=== PATIENT | male | born 1985 | race Caucasian/White ===

== ENCOUNTER 2022-08-23 13:09 | Emergency (ER) | payer BC, SELFPAY ==
--- NOTE | 2022-08-23 13:36 | DI.RAD.S_ITS ---
PROCEDURE: XR ELBOW RT MIN 3V INDICATIONS: Rt elbow injury TECHNIQUE: 3 views of the elbow were acquired. COMPARISON: None. FINDINGS: Bones: No fractures or dislocations. No suspicious bony lesions. Enthesophyte formation in proximal olecranon near triceps tendon insertion is seen. Soft tissues: No elbow joint effusion. No suspicious soft tissue calcifications. IMPRESSION: No acute elbow fracture or dislocation. No joint effusion. Dictated by: John Simon M.D. on 08/23/2022 at 14:20 Approved by: John Simon M.D. on 08/23/2022 at 14:20
--- NOTE | 2022-08-23 13:57 | ED_ITS ---
HPI - Extremity Injury (Upper) <YENNY Navarro - Last Filed: 08/23/22 15:20> General Chief Complaint: Extremity Injury, Upper Stated Complaint: Rt elbow inj Time Seen by Provider: 08/23/22 13:36 History of Present Illness HPI narrative: This is a 37-year-old male who presents to the emergency department with right elbow pain after he was trying to start a change, states it took 30-40 pulse and he experience pain at the tip of his right elbow and states that since the injury he is had worsening pain. He states it is sore when he tries to fully extend in it is difficult to extend his arm fully, he denies any forearm or upper arm pain, denies tenderness to forearm squeeze or upper arm squeeze over his biceps tendon. Denies any numbness or tingling, mobility deficit other than difficulty with extension and tenderness. Related Data Allergies Allergy/AdvReac Type Severity Reaction Status Date / Time fluticasone [From Flonase] Allergy Joint Pain Verified 08/23/22 14:24 [email or web address] [From Mucinex] Allergy Verified 08/23/22 14:24 Review of Systems <YENNY Navarro - Last Filed: 08/23/22 15:20> Review of Systems ROS Unobtainable: All systems reviewed & are unremarkable except as noted in HPI and below Patient History <YENNY Navarro - Last Filed: 08/23/22 15:20> Social History Smoking Status: Never smoker Exam <YENNY Navarro - Last Filed: 08/23/22 15:20> Narrative Exam Narrative: Reviewed vitals signs and nursing notes. General: cooperative, comfortable, in no acute distress, well groomed MSK: moves all extremities, difficulty with extension of the right arm at the tip of the olecranon, tenderness to palpation over the olecranon, no tenderness over distal triceps, biceps tendon, forearm tenderness, or proximal radius. He is Neurovascularly intact, no weakness, with normal tone Skin: brisk capillary refill, without pallor or erythema Neuro: normal speech and cognition, A&O x3, ambulatory, clear speech Psych: mental status is grossly normal, congruent mood, normal affect, pleasant and cooperative Initial Vital Signs Initial Vital Signs: Vital Signs Temperature 98.7 F 08/23/22 14:17 Pulse Rate 76 08/23/22 14:17 Respiratory Rate 16 08/23/22 14:17 Blood Pressure 137/88 08/23/22 14:17 Pulse Oximetry 98 08/23/22 14:17 Oxygen Delivery Method 08/23/22 14:17 <Oralia Hernandez DO - Last Filed: 08/24/22 18:40> Initial Vital Signs Initial Vital Signs: Vital Signs Temperature 98.7 F 08/23/22 14:17 Pulse Rate 76 08/23/22 14:17 Respiratory Rate 16 08/23/22 14:17 Blood Pressure 137/88 08/23/22 14:17 Pulse Oximetry 98 08/23/22 14:17 Oxygen Delivery Method 08/23/22 14:17 Course <YENNY Navarro - Last Filed: 08/23/22 15:20> Orders Ordered: Discontinued Medications Ketorolac Tromethamine (Ketorolac 30 Mg/Ml Vial) 30 mg IM NOW ONE Stop: 08/23/22 14:18 Consultations Consultation #1: Consultation with Dr. Sanon who is on-call for Orthopedics Vital Signs Vital signs: Vital Signs - 8 hr 08/23/22 14:17 08/23/22 14:29 Temperature 98.7 F Pulse Rate 76 Pulse Rate [Right Radial] 76 Respiratory Rate 16 Blood Pressure 137/88 Pulse Oximetry 98 Oxygen Delivery Method Room Air <Oralia Hernandez DO - Last Filed: 08/24/22 18:40> Orders Ordered: Discontinued Medications Ketorolac Tromethamine (Ketorolac 30 Mg/Ml Vial) 30 mg IM NOW ONE Stop: 08/23/22 14:18 Vital Signs Vital signs: Vital Signs - 8 hr 08/23/22 14:17 08/23/22 14:29 Temperature 98.7 F Pulse Rate 76 Pulse Rate [Right Radial] 76 Respiratory Rate 16 Blood Pressure 137/88 Pulse Oximetry 98 Oxygen Delivery Method Room Air MDM - Extremity Injury (Upper) <YENNY Navarro - Last Filed: 08/23/22 15:20> Imaging Data Extremity x-ray #1: Radiologist's Impression: PROCEDURE:? XR ELBOW RT MIN 3V ? INDICATIONS:? Rt elbow injury ? TECHNIQUE:? 3 views of the elbow were acquired.? ? COMPARISON:? None. ? FINDINGS:? ? Bones:? No fractures or dislocations.? No suspicious bony lesions.? Enthesophyte formation in proximal olecranon near triceps tendon insertion is seen. ? Soft tissues:? No elbow joint effusion.? No suspicious soft tissue calcifications.? ? ? IMPRESSION:? No acute elbow fracture or dislocation.? No joint effusion. ? ? Dictated by: John Simon M.D. on 08/23/2022 at 14:20 ? ? Approved by: John Simon M.D. on 08/23/2022 at 14:20 ? [facility] Narrative Medical decision making narrative: This is a 37-year-old male who presents to the emergency department with right elbow pain after he was trying to start a chain saw multiple times and had tenderness over the tip of his right olecranon. He states that the pain got worse and is tender to palpation, he has pain with full extension but is able to extend his arm fully. Consultation with Dr. Sanon regarding patient's right elbow x-ray and he states that abnormality IV on his lateral view is enthesop hyte and not an avulsion fracture. This is consistent with his radiology report. X-ray does not show any fracture, dislocation or joint effusion, there is enthesophyte present nares triceps extensor tendon. No crepitus, no open wound, patient was given a sling, he was given a work note, encouraged to follow-up with orthopedics if it does not start to improve. Patient is appropriate and amenable to discharge home. Vital signs are stable on repeat examination is unremarkable. Patient has been informed of results. Patient has been given strict return to ER precautions for any new or worsening symptoms. Patient understands to follow up closely with outpatient providers as instructed. Patient understands plan and agrees to discharge home. All questions and concerns answered at this time. Discharge Plan Departure Patient Disposition: Home Clinical Impression: Enthesopathy of elbow Elbow injury Qualifiers: Encounter type: initial encounter Laterality: right Qualified Code(s): S59.901A - Unspecified injury of right elbow, initial encounter Instructions: Elbow Sprain Activity Restrictions/Additional Instructions: *You have been diagnosed with an enthesophyte in right elbow from previous injury and without fracture, avulsion fracture or symptoms of tendinitis. You likely have a strain of that tendon however and anti-inflammatories ice can help. You can use a sling to avoid overuse of this and try to reduce your right arm activity over the next few days. If you do not have normal range of motion or if this gets worse, please follow-up at [facility] for an evaluation. Use Tylenol and ibuprofen every 6-8 hours for pain control, should be adequate. Return for any new or worsening symptoms, I talked with Dr. Sanon from [facility] who reassures me that this is not fractured and should improve over the next 1-2 weeks. *What to do: *Please continue to take your regular medications as directed. [ ] New medication prescriptions sent to your pharmacy: [ ] [ ] New medication written as a paper prescription [x ] No new medications given *Please follow up with your primary care provider in 2-3 days, call for an appointment. Let them know you were seen in the Emergency Department and that we ask that you be seen in follow up. We will electronically transmit a record of today's note if your PCP is in our system *If you do not have a primary care provider please contact the [facility] Resource line at [phone]. They will ask some questions about your medical history and help get you set up with a doctor in the community. *Return to Emergency Department if you should have any new, worsening or concerning symptoms, such as [fever greater than 101 F, shaking chills, worsening pain, persistent vomiting or other bothersome symptoms] Referrals: [facility] [Provider Group] Miscellaneous,Doctor, [Primary Care Provider] - Stand Alone Forms: Work Release Note Visit Report Forms: Patient Portal/API <Oralia Hernandez DO - Last Filed: 08/24/22 18:40> Cosign ED Attending Marcelature Attestation: I was immediately available in the department for consultation. Documentation has been reviewed. I agree with assessment and plan.
[2022-08-23 14:17] VITALS: BP 137/88; PULSE 76; RESP 16; TEMP 37.1; O2SAT 98; BMI 30.8
[2022-08-23 14:29] VITALS: PULSE 76
== END 2022-08-23 14:46 | disposition home or self-care (01) ==
PROVIDERS: Emergency Provider Nurse Practitioner Critical Care Medicine
DX: S59.901A Unspecified injury of right elbow, initial encounter (principal); M77.8 Other enthesopathies, not elsewhere classified; X50.9XXA Other and unspecified overexertion or strenuous movements or postures, initial encounter
CPT/HCPCS: 73080; 96372; 99283

== ENCOUNTER → 2023-01-14 07:39 | Outpatient (CLI) | payer BC, SELFPAY ==
--- NOTE | 2023-01-14 | DI.MRI.S_ITS ---
PROCEDURE: MR ELBOW RT WO CON INDICATIONS: Strain of muscle, fascia and tendon right arm TECHNIQUE: Noncontrast coronal proton density fast spin echo and T2 fast spin echo with fat saturation, axial and sagittal T1 spin echo and T2 fast spin echo with fat saturation through the elbow. COMPARISON: [facility] MR, MR ELBOW RIGHT WITHOUT CONTRAST, 09/28/2022, 14:36. FINDINGS: Image quality: Excellent. Lateral structures: The lateral ulnar collateral ligament and radial collateral ligament both appear intact. The overlying common extensor tendon also appears normal. Medial structures: The ulnar collateral ligament appears intact. The overlying common flexor tendon appears normal. The ulnar nerve appears normal in size and signal within the cubital tunnel. Anterior structures: The biceps and brachialis tendons both appear intact as they insert onto the proximal radius and ulna, respectively. No bicipitoradial bursal fluid. The median and radial neurovascular bundles appear normal; no focal muscle atrophy to suggest nerve impingement. Posterior structures: Postsurgical changes are noted from prior triceps tendon repair. There is full-thickness rupture of distal triceps tendon approximately 1 cm from its insertion on proximal olecranon with up to 2 cm proximal retraction of torn tendon fibers and large amount of surrounding fluid and soft tissue edema. Bone and cartilage: Postsurgical changes are noted in proximal olecranon with mild susceptibility artifacts. Mild edema involving proximal olecranon is also seen. No fracture or dislocation. No osteochondral injuries. IMPRESSION: 1. Postsurgical changes in proximal olecranon with susceptibility artifacts. No definite acute fracture or dislocation. No suspicious bony lesions. No osteochondral injuries. 2. Rupture of distal triceps tendon 1 cm from its proximal olecranon insertion with up to 2 cm proximal retraction of torn tendon fibers and moderate to large amount of surrounding fluid and soft tissue edema. 3. Rest of the elbow tendons and ligaments are intact. Dictated by: John Simon M.D. on 01/14/2023 at 10:19 Approved by: John Simon M.D. on 01/14/2023 at 14:06
== END ==
PROVIDERS: Referring Provider Orthopaedic Surgery; Visit Provider Orthopaedic Surgery
DX: S46.311A Strain of muscle, fascia and tendon of triceps, right arm, initial encounter (principal); X58.XXXA Exposure to other specified factors, initial encounter
CPT/HCPCS: 73221